=== PATIENT | female | born 1985 | race Caucasian/White ===

== ENCOUNTER 2016-11-23 01:31 | Emergency (ER) | payer OTHER ==
[~2016-11-23] VITALS: Ht 160 cm; Wt 97.8 kg
[~2016-11-23 01:31] MED LIST: ENDOCET 5-3251 EACH PO; MOTRIN800 MG PO
[2016-11-23] MEDS ORDERED: ERYTHROMYC1 APPLICAT RIGHT EYE (03:05)
[2016-11-23 03:50] VITALS: BP 135/76
== END 2016-11-23 03:52 | disposition home or self-care (01) ==
LOC: EME 01:31
DX: S05.01XA Injury of conjunctiva and corneal abrasion without foreign body, right eye, initial encounter (principal); W51.XXXA Accidental striking against or bumped into by another person, initial encounter
CPT/HCPCS: 99281; 99283

== ENCOUNTER 2016-12-30 07:57 | Emergency (ER) | payer OTHER ==
[~2016-12-30] VITALS: Ht 160 cm; Wt 87.3 kg
[~2016-12-30 07:57] MED LIST changes: +ERYTHROMYC1 APPLICAT RIGHT EYE
[2016-12-30 08:22] LABS: EOSINOPHIL (%) 2.1 % (0-5); EOSINOPHIL COUNT 0.2 K/uL (0-0.3); HEMATOCRIT 44.7 % (36.0-46.0); IMMATURE GRANULOCYTE (%) 0.1 % (0.0-0.7); INSTRUMENT ABS NEUTROPHIL CT 7.7 K/uL; LYMPHOCYTE COUNT 0.3 K/uL (1.0-2.8); MCH 30.7 PG (29.0-34.0); MCHC 32.7 G/DL (30.0-36.0); MCV 94.1 FL (83-99); MEAN PLAT.VOLUME 10.4 uM^3 (9.5-12.4); MONOCYTE (%) 4.2 % (3-12); MONOCYTE COUNT 0.4 K/uL (0-0.8); NEUTROPHIL (%) 89.9 % (45-76); NEUTROPHIL COUNT 7.7 K/uL (1.8-6.4); PLATELET COUNT 277 K/uL (156-360); RBC DIS.WIDTH-CV 13.3 % (11.8-14.6); RBC DIS.WIDTH-SD 46.2 % (39-53); RED BLOOD COUNT 4.75 M/uL (3.80-5.20); WHITE BLOOD COUNT 8.6 K/uL (4.1-10.2)
[2016-12-30 08:33] LABS: CHLORIDE 110 mEq/L (99-109); D-DIMER ELISA 0.53 mg/L FEU (< 0.57); POTASSIUM 3.7 mEq/L (3.7-5.4); SODIUM 141 mEq/L (136-147)
[2016-12-30 08:35] LABS: GLUCOSE 99 mg/dL (70-99)
[2016-12-30 08:36] LABS: ANION GAP 13 MEQ/L (2-14)
[2016-12-30 08:39] LABS: GFR ESTIMATE (CALCULATED) > 59 mL/min/
[2016-12-30 08:40] LABS: UREA NITROGEN (BUN) 13 mg/dL (9-23)
[2016-12-30 08:44] LABS: TROP-I INTERPRETATION NEGATIVE; TROPONIN-I < 0.01 ng/mL (0.0-0.30)
[2016-12-30 09:39] LABS: INFLUENZA A VIRAL ANTIGEN NEGATIVE; INFLUENZA B VIRAL ANTIGEN NEGATIVE
[2016-12-30 11:11] VITALS: BP 11/63
== END 2016-12-30 11:13 | disposition left against medical advice (07) ==
LOC: EME → EDBD 07:57 → EME 11:13
PROVIDERS: Emergency Medicine
DX: R07.89 Other chest pain (principal); J40 Bronchitis, not specified as acute or chronic; R06.2 Wheezing; F17.200 Nicotine dependence, unspecified, uncomplicated; Z88.2 Allergy status to sulfonamides
CPT/HCPCS: 71010; 80048; 84484; 85025; 85379; 87502; 93005; 94640; 99281; 99284

== ENCOUNTER 2017-08-08 18:32 | Emergency (ER) | payer OTHER ==
[~2017-08-08] VITALS: Ht 157.5 cm; Wt 88.0 kg
[2017-08-08] MEDS ORDERED: TRAMADOL HCL50 MG PO (20:21)
[2017-08-08 20:40] VITALS: BP 142/98
== END 2017-08-08 20:40 | disposition home or self-care (01) ==
LOC: EME 18:32
PROC: 3E0T3BZ Introduction of Anesthetic Agent into Peripheral Nerves and Plexi, Percutaneous Approach (ICD-10-PCS; principal; 2017-08-08)
DX: K08.89 Other specified disorders of teeth and supporting structures (principal); F41.9 Anxiety disorder, unspecified; F17.200 Nicotine dependence, unspecified, uncomplicated; Z88.2 Allergy status to sulfonamides
CPT/HCPCS: 99281; 99283